=== PATIENT | female | born 1955 | race Asian ===

== ENCOUNTER 2019-06-15 02:00 | Emergency (ER) | payer SELFPAY ==
[~2019-06-15] VITALS: Ht 162.6 cm; Wt 65.0 kg
[2019-06-15 02:15] VITALS: Ht 162.6 cm; Wt 65.0 kg
[2019-06-15] MEDS ORDERED: SOD CHLORIDE 0.9% 1,000 ML IV STA (02:16)
[2019-06-15] MEDS ORDERED: AZITHROMYCIN 500 MG TAB PO ONE (03:00)
[2019-06-15] MEDS ORDERED: LORAZEPAM 0.5 MG TAB PO ONE (03:00)
[2019-06-15] MEDS ORDERED: CEFTRIAXONE 1 GM INJ IM ONE (03:00)
[2019-06-15 04:20] VITALS: BP 134/82; PULSE 80; RESP 19
== END 2019-06-15 04:28 | disposition home or self-care (01) ==
LOC: E/R 02:00
DX: R42 Dizziness and giddiness (principal); R40.2142 Coma scale, eyes open, spontaneous, at arrival to emergency department; R40.2252 Coma scale, best verbal response, oriented, at arrival to emergency department; R40.2362 Coma scale, best motor response, obeys commands, at arrival to emergency department
CPT/HCPCS: 80053; 82962; 83690; 85025; J7030; 36415